=== PATIENT | female | born 1950 | race Caucasian/White ===

== ENCOUNTER 2020-03-23 10:14 | Inpatient (IN) | payer MEDICARE, BC ==
--- NOTE | 2020-03-23 10:31 | ED ---
SOB HPI - General Source: patient Mode of arrival: wheelchair Limitations: no limitations <Angela Hay - Last Filed: 03/23/20 13:20> <Xenia Adam - Last Filed: 03/25/20 02:14> - General Chief Complaint: Shortness of Breath Stated Complaint: weakness/SOB Time Seen by Provider: 03/23/20 10:20 - History of Present Illness Initial Comments: 69-year-old female presenting today for chief complaint of generalized weakness, SOB. She states for the past 2 days she has felt increasingly weak and short of breath she states at times like her heart is racing. Patient states that her tooth has been bleeding on and off where she had a recent dental procedure. Pt denies cough, fevers, diarrhea, vomiting. Patient has noted dark stools. Denies vomiting blood or vomiting. Denies nausea, chest pain. Patient denies pain with deep inspiration. Patient admits to alcohol use. patient denies known history of liver disease or cirrhosis. Denies abdominal pain, or fernando red rectal bleeding. Upon arrival patient smell of alcohol. VS within acceptable limits. Pt does not appear in respiratory distress/toxic. Pt is odd -does not appears altered, but overall poor historian of PMH and describing symptoms (very vague). Last drink yesterday afternoon. (Angela Hay) - Related Data Home Medications Medication Instructions Recorded Confirmed Cholecalciferol [Vitamin D3 (25 1,000 unit PO DAILY 03/23/20 03/23/20 Mcg = 1000 Iu)] Vitamin C(Unknown Dose) 1 tab PO DAILY 03/23/20 03/23/20 Allergies Allergy/AdvReac Type Severity Reaction Status Date / Time No Known Allergies Allergy Verified 03/23/20 13:14 Review of Systems ROS Other: All systems not noted in ROS Statement are negative. <Angela Hay - Last Filed: 03/23/20 13:20> ROS Other: All systems not noted in ROS Statement are negative. <Xenia Adam - Last Filed: 03/25/20 02:14> ROS Statement: Those systems with pertinent positive or pertinent negative responses have been documented in the HPI. Past Medical History Past Medical History: No Reported History History of Any Multi-Drug Resistant Organisms: None Reported Additional Past Surgical History / Comment(s): eye surgery Past Psychological History: No Psychological Hx Reported Smoking Status: Current every day smoker Past Alcohol Use History: Occasional Past Drug Use History: None Reported <Angela Hay - Last Filed: 03/23/20 13:20> General Exam Limitations: no limitations <Angela Hay - Last Filed: 03/23/20 13:20> - General Exam Comments Initial Comments: General: The patient is awake and alert, in no distress Eye: +3 mm pupils are equal, round and reactive to light, extra-ocular movements are intact. No nystagmus. There is normal conjunctiva bilaterally. No signs of icterus. Ears, nose, mouth and throat: There are moist mucous membranes and no oral lesions. Dried blood on lips, near implant no active bleeding. Neck: The neck is supple, there is no tenderness or JVD. Cardiovascular: There is a regular rate and rhythm. No murmur, rub or gallop is appreciated. Respiratory: Lungs are clear to auscultation, respirations are non-labored, breath sounds are equal. No wheezes, stridor, rales, or rhonchi. Gastrointestinal: Soft, non-distended, non-tender abdomen without masses or organomegaly noted. There is no rebound or guarding present. Dark stool on ADONIS. Musculoskeletal: Normal ROM, no tenderness. Strength 5/5. Sensation intact. Radial pulses equal bilaterally 2+. Neurological: A&O x 3. CN II-XII intact grossly, There are no obvious motor or sensory deficits. Coordination appears grossly intact. Speech is normal. Skin: Skin is warm and dry and no rashes or lesions are noted. Psychiatric: Cooperative, appropriate mood & affect, normal judgment. (Angela Hay) Course Vital Signs 03/23/20 03/23/20 10:16 13:11 Temperature 97.8 F Pulse Rate 98 96 Respiratory 18 18 Rate Blood Pressure 157/75 129/68 O2 Sat by Pulse 99 98 Oximetry Medical Decision Making - Lab Data Result diagrams: 03/23/20 10:34 03/23/20 10:34 <Angela Hay - Last Filed: 03/23/20 13:20> - Lab Data Result diagrams: 03/23/20 18:00 03/23/20 10:34 <Xenia Adam - Last Filed: 03/25/20 02:14> - Medical Decision Making 69-year-old feel presents for weakness. Occult positive patient states she has noticed some darker stools. On CT there is evidence of esophageal varices. Patient denies any spitting or vomiting up blood. Patient has elevated INR most likely secondary to chronic liver disease and cirrhosis. She smells of alcohol. Patient is placed on CIWA withdrawal protocols. HgB and blood pressures stable, no bright red blood per rectum. Patient case discussed wtih Dr. Adam who is agreeable to admission for GI bleed, SOB. Dr. Lopez accepted admission. GI on consult. Protonix and loading bolus of octreotride given. Repeat CBC ordered. (Angela Hay) I was available for consultation in the emergency department. The history and physical exam were done by the midlevel provider. I was consulted for this patients care. I reviewed the case with the midlevel provider and based on their presentation of the patient, I agree with the assessment, medical decision making and plan of care as documented. Chart was dictated using [employer] dictation software. Attempts were made to correct any dictation errors however some typographical errors may persist. Patient was seen during a national state of emergency due to the Covid-19 pandemic. (Xenia Adam) - Lab Data Lab Results 03/23/20 03/23/20 03/23/20 Range/Units 10:34 10:34 10:34 WBC 5.7 (3.8-10.6) k/uL RBC 3.63 L (3.80-5.40) m/uL Hgb 13.4 (11.4-16.0) gm/dL Hct 40.7 (34.0-46.0) % MCV 112.1 H (80.0-100.0) fL MCH 37.0 H (25.0-35.0) pg MCHC 33.0 (31.0-37.0) g/dL RDW 16.9 H (11.5-15.5) % Plt Count 49 L (150-450) k/uL Neutrophils % 39 % Lymphocytes % 50 % Monocytes % 4 % Eosinophils % 3 % Basophils % 1 % Neutrophils # 2.2 (1.3-7.7) k/uL Lymphocytes # 2.8 (1.0-4.8) k/uL Monocytes # 0.2 (0-1.0) k/uL Eosinophils # 0.2 (0-0.7) k/uL Basophils # 0.1 (0-0.2) k/uL Manual Slide Review Performed Anisocytosis Slight Macrocytosis Marked A Target Cells Present PT 16.6 H (9.0-12.0) sec INR 1.7 H (<1.2) APTT 30.6 H (22.0-30.0) sec D-Dimer 1.23 H (<0.60) mg/L FEU Sodium 141 (137-145) mmol/L Potassium 3.7 (3.5-5.1) mmol/L Chloride 111 H (98-107) mmol/L Carbon Dioxide 22 (22-30) mmol/L Anion Gap 8 mmol/L BUN 5 L (7-17) mg/dL Creatinine 0.42 L (0.52-1.04) mg/dL Est GFR (CKD-EPI)AfAm >90 (>60 ml/min/1.73 sqM) Est GFR (CKD-EPI)NonAf >90 (>60 ml/min/1.73 sqM) Glucose 117 H (74-99) mg/dL Plasma Lactic Acid Maximilian (0.7-2.0) mmol/L Calcium 8.0 L (8.4-10.2) mg/dL Total Bilirubin 2.4 H (0.2-1.3) mg/dL AST 94 H (14-36) U/L ALT 36 H (4-34) U/L Alkaline Phosphatase 203 H (38-126) U/L Ammonia (<30) umol/L Troponin I (0.000-0.034) ng/mL NT-Pro-B Natriuret Pep pg/mL Total Protein 7.4 (6.3-8.2) g/dL Albumin 3.1 L (3.5-5.0) g/dL Stool Occult Blood (Negative) Hepatitis A IgM Ab 03/23/20 03/23/20 03/23/20 Range/Units 10:34 10:34 10:34 WBC (3.8-10.6) k/uL RBC (3.80-5.40) m/uL Hgb (11.4-16.0) gm/dL Hct (34.0-46.0) % MCV (80.0-100.0) fL MCH (25.0-35.0) pg MCHC (31.0-37.0) g/dL RDW (11.5-15.5) % Plt Count (150-450) k/uL Neutrophils % % Lymphocytes % % Monocytes % % Eosinophils % % Basophils % % Neutrophils # (1.3-7.7) k/uL Lymphocytes # (1.0-4.8) k/uL Monocytes # (0-1.0) k/uL Eosinophils # (0-0.7) k/uL Basophils # (0-0.2) k/uL Manual Slide Review Anisocytosis Macrocytosis Target Cells PT (9.0-12.0) sec INR (<1.2) APTT (22.0-30.0) sec D-Dimer (<0.60) mg/L FEU Sodium (137-145) mmol/L Potassium (3.5-5.1) mmol/L Chloride (98-107) mmol/L Carbon Dioxide (22-30) mmol/L Anion Gap mmol/L BUN (7-17) mg/dL Creatinine (0.52-1.04) mg/dL Est GFR (CKD-EPI)AfAm (>60 ml/min/1.73 sqM) Est GFR (CKD-EPI)NonAf (>60 ml/min/1.73 sqM) Glucose (74-99) mg/dL Plasma Lactic Acid Maximilian 1.8 (0.7-2.0) mmol/L Calcium (8.4-10.2) mg/dL Total Bilirubin (0.2-1.3) mg/dL AST (14-36) U/L ALT (4-34) U/L Alkaline Phosphatase (38-126) U/L Ammonia (<30) umol/L Troponin I <0.012 (0.000-0.034) ng/mL NT-Pro-B Natriuret Pep 163 pg/mL Total Protein (6.3-8.2) g/dL Albumin (3.5-5.0) g/dL Stool Occult Blood (Negative) Hepatitis A IgM Ab 03/23/20 03/23/20 03/23/20 Range/Units 12:30 12:30 12:36 WBC (3.8-10.6) k/uL RBC (3.80-5.40) m/uL Hgb (11.4-16.0) gm/dL Hct (34.0-46.0) % MCV (80.0-100.0) fL MCH (25.0-35.0) pg MCHC (31.0-37.0) g/dL RDW (11.5-15.5) % Plt Count (150-450) k/uL Neutrophils % % Lymphocytes % % Monocytes % % Eosinophils % % Basophils % % Neutrophils # (1.3-7.7) k/uL Lymphocytes # (1.0-4.8) k/uL Monocytes # (0-1.0) k/uL Eosinophils # (0-0.7) k/uL Basophils # (0-0.2) k/uL Manual Slide Review Anisocytosis Macrocytosis Target Cells PT (9.0-12.0) sec INR (<1.2) APTT (22.0-30.0) sec D-Dimer (<0.60) mg/L FEU Sodium (137-145) mmol/L Potassium (3.5-5.1) mmol/L Chloride (98-107) mmol/L Carbon Dioxide (22-30) mmol/L Anion Gap mmol/L BUN (7-17) mg/dL Creatinine (0.52-1.04) mg/dL Est GFR (CKD-EPI)AfAm (>60 ml/min/1.73 sqM) Est GFR (CKD-EPI)NonAf (>60 ml/min/1.73 sqM) Glucose (74-99) mg/dL Plasma Lactic Acid Maximilian (0.7-2.0) mmol/L Calcium (8.4-10.2) mg/dL Total Bilirubin (0.2-1.3) mg/dL AST (14-36) U/L ALT (4-34) U/L Alkaline Phosphatase (38-126) U/L Ammonia 19 (<30) umol/L Troponin I (0.000-0.034) ng/mL NT-Pro-B Natriuret Pep pg/mL Total Protein (6.3-8.2) g/dL Albumin (3.5-5.0) g/dL Stool Occult Blood Positive H (Negative) Hepatitis A IgM Ab NEGATIVE Disposition Is patient prescribed a controlled substance at d/c from ED?: No Time of Disposition: 12:58 Decision to Admit Reason: Admit from EC Decision Date: 03/23/20 Decision Time: 12:58 <Angela Hay - Last Filed: 03/23/20 13:20> <Xenia Adam - Last Filed: 03/25/20 02:14> Clinical Impression: Dyspnea, Weakness, GI bleed, Alcohol abuse, Cirrhosis, Varices, esophageal, Pulmonary congestion, Ascites, Elevated INR Disposition: ADMITTED IP TO THIS HOSP Condition: Stable
[2020-03-23 10:58] LABS: ALT 36 U/L (4-34); AST 94 U/L (14-36); African American GFR (CKD) >90 (>60 ml/min/1.73 sqM); Albumin 3.1 g/dL (3.5-5.0); Alkaline Phosphatase 203 U/L (38-126); Anion Gap 8 mmol/L; Blood Urea Nitrogen 5 mg/dL (7-17); Carbon Dioxide 22 mmol/L (22-30); Chloride 111 mmol/L (98-107); Glucose 117 mg/dL (74-99); Non-African American GFR(CKD) >90 (>60 ml/min/1.73 sqM); Potassium 3.7 mmol/L (3.5-5.1); Sodium 141 mmol/L (137-145); Total Bilirubin 2.4 mg/dL (0.2-1.3); Total Protein 7.4 g/dL (6.3-8.2)
[2020-03-23 11:01] LABS: INR 1.7 (<1.2); Partial Thromboplastin Time 30.6 sec (22.0-30.0); Prothrombin Time 16.6 sec (9.0-12.0)
[2020-03-23 11:05] LABS: D-Dimer 1.23 mg/L FEU (<0.60)
[2020-03-23 11:07] LABS: Anisocytosis Slight; Basophils # (A) 0.1 k/uL (0-0.2); Basophils % (A) 1 %; Eosinophils # (A) 0.2 k/uL (0-0.7); Eosinophils % (A) 3 %; HCT 40.7 % (34.0-46.0); HGB 13.4 gm/dL (11.4-16.0); Lymphocytes # (A) 2.8 k/uL (1.0-4.8); Lymphocytes % (A) 50 %; MCV 112.1 fL (80.0-100.0); Macrocytosis Marked; Mean Platelet Volume 9.8; Monocytes # (A) 0.2 k/uL (0-1.0); Monocytes % (A) 4 %; Neutrophils # (A) 2.2 k/uL (1.3-7.7); Neutrophils % (A) 39 %; RBC 3.63 m/uL (3.80-5.40); RDW 16.9 % (11.5-15.5); WBC 5.7 k/uL (3.8-10.6)
--- NOTE | 2020-03-23 11:08 | XR ---
EXAMINATION TYPE: XR chest 2V DATE OF EXAM: 03/23/2020 COMPARISON: NONE HISTORY: Dyspnea TECHNIQUE: Frontal and lateral views of the chest are obtained. FINDINGS: There is no focal air space opacity, pleural effusion, or pneumothorax seen. Minimal pulm onary vascular congestion. The cardiac silhouette size is within normal limits upper limits normal si ze. The osseous structures are intact. Mild multilevel degenerative change of the spine. IMPRESSION: Minimal pulmonary vascular congestion and upper limits of normal size cardiomediastinal silhouette. Correlate for congestive heart failure.
[2020-03-23 11:22] LABS: Platelet Count 49 k/uL (150-450); Target Cells Present
--- NOTE | 2020-03-23 12:09 | CT ---
EXAMINATION TYPE: CT chest angio for PE DATE OF EXAM: 03/23/2020 COMPARISON: NONE HISTORY: SOB, dizziness, elevated d-dimer CT DLP: 413.3 mGycm. Automated Exposure Control for Dose Reduction was Utilized. CONTRAST: CTA scan of the thorax is performed with IV Contrast, patient injected with 100 mL of Isovue 370, pul monary embolism protocol. MIP Images are created on CT scanner and reviewed. FINDINGS: Patient motion artifact and suboptimal bolus timing limits evaluation. LUNGS: Respiratory motion and patient motion limit evaluation of the lungs. There are scattered areas of subsegmental atelectasis. Slight interstitial prominence favoring a mild degree of fluid overload . Limited evaluation for pulmonary nodule. There is no pleural effusion or pneumothorax seen. The tracheobronchial tree is patent. MEDIASTINUM: There is suboptimal enhancement of the pulmonary artery and its branches with equivalent amount of contrast in the aorta and main pulmonary artery. No central pulmonary embolus seen. There are no greater than 1 cm hilar or mediastinal lymph nodes. Heart is upper limits of normal size witho ut pericardial effusion. Moderate coronary artery calcification seen, particularly within the left an terior descending coronary artery. OTHER: Lipomatous lesion of the right lateral chest wall. This measures 3.4 cm. There is an abnormal lobulated contour the liver with mild perihepatic ascites. Hypoattenuation of the hepatic parenchyma in hepatocellular disease limit evaluation for hepatic masses. The spleen is enlarged measuring 15.4 cm in longitudinal dimension. There is mesenteric congestion, particularly centrally in combination w ith the small amount of perihepatic ascites. There is enlargement of the main portal vein representin g portal venous hypertension sequela. Cholelithiasis is seen. Few varices are noted in the gastric he patic ligament region and around the spleen. Varices are also seen surrounding the distal esophagus. There is slight thickening of the bilateral adrenal glands suggesting adrenal gland hyperplasia. Mild multilevel degenerative change of the spine. IMPRESSION: 1. Suboptimal exam given bolus timing and patient motion. No central pulmonary embolus. 2. Cirrhotic morphology of the liver with sequela portal venous hypertension, trace abdominal ascites , mesenteric edema, esophageal varices, and varices within both the upper central abdomen and splenic region. 3. Moderate coronary calcifications, marker of coronary artery disease. 4. Cholelithiasis. 5. Mild interstitial prominence suggesting a mild degree of pulmonary fluid overload.
[2020-03-23] MEDS ORDERED: THIAMINE 100 MG/ML 2 ML VIAL IM STA (12:24)
[2020-03-23] MEDS ORDERED: LORazepam 2 MG/ML INJ IV PRN ×3 (12:24)
[2020-03-23] MEDS ORDERED: NALOXONE 0.4 MG/ML 1 ML VIAL IV PRN (12:59)
[2020-03-23] MEDS ORDERED: PANTOPRAZOLE 40 MG/10 ML VIAL IVP STA (13:07)
[2020-03-23 13:21] LABS: Hepatitis A Antibody IgM NEGATIVE
[2020-03-23] MEDS: THIAMINE 100 MG TAB PO SCH (17:14)
--- NOTE | 2020-03-23 17:14 | HP ---
HISTORY AND PHYSICAL CHIEF COMPLAINT: Weakness and blood in the stool. HISTORY OF PRESENT ILLNESS: This the first known admission for this 69-year-old white female. She came to the emergency room with a complaint of weakness and shortness of breath. This has been going on for the last several days. She also noticed tachycardia. She had some melanotic stool as well. It was very clear that she is an alcoholic. In the emergency room her vital signs were unremarkable. CBC was normal except platelets were low at 49,000. Electrolytes were unremarkable. Ammonia was 19. Bilirubin was 2.4. AST was 94 with ALT of 36. Alkaline phosphatase was 203. REVIEW OF SYSTEMS: She denies any headaches, seizures, blackouts, difficulty with vision or hearing, chest pain, cough, hemoptysis, shortness of breath, palpitations, heart disease, murmurs, rheumatic fever, hypertension, orthopnea, PND, abdominal pain, jaundice, acholic stools, dark urine, renal failure, frequency, urgency, dysuria, incontinence, etc. Past medical history, family history and personal and social histories reveal that she is not allergic to any medications. She does not take any medications at home. She states she still smokes about half pack of cigarettes a day and drinks fairly heavily every day with her . PHYSICAL EXAMINATION: Blood pressure is 157/75 with a pulse of 98, respirations 18 and she is afebrile. In general she appeared well developed, well nourished, no acute distress. Skin was slightly bronzed. Head, ears, eyes, nose, mouth and throat demonstrated icterus. Pupils were equal, round. Ears are clear. Nose mouth and throat were normal and she did have fetor hepaticus. Neck is supple. Neck veins not distended. Chest is clear to auscultation. Cardiac exam demonstrated normal sinus rhythm with a grade 1/6 systolic murmur heard at the base. The abdomen was protuberant and there was evidence of significant ascites. There are no masses or visceromegaly. Extremities are normal. Neurologically she is intact. She was admitted to the hospital diagnoses: 1. Gastrointestinal bleed. 2. Chronic alcoholism. 3. Alcoholic hepatitis. 4. Cirrhosis. 5. Probable portal hypertension. 6. Thrombocytopenia. 7. Cardiac murmur. PLAN: 1. Bed rest. 2. IV fluids. 3. N.p.o. 4. Follow laboratory studies closely. 5. GI consult. MMODL / IJN: [id number] /
[2020-03-23] MEDS: SODIUM CHLORIDE 0.9% 1,000 ML IV SCH (17:15)
[2020-03-23 18:21] LABS: Anisocytosis Slight; Basophils % (A) 1 %; Eosinophils % (A) 1 %; HCT 39.4 % (34.0-46.0); HGB 12.3 gm/dL (11.4-16.0); Lymphocytes # (A) 1.4 k/uL (1.0-4.8); Lymphocytes % (A) 31 %; MCH 35.5 pg (25.0-35.0); MCHC 31.2 g/dL (31.0-37.0); MCV 114.1 fL (80.0-100.0); Macrocytosis Marked; Monocytes # (A) 0.2 k/uL (0-1.0); Monocytes % (A) 4 %; Neutrophils # (A) 2.8 k/uL (1.3-7.7); Neutrophils % (A) 62 %; RBC 3.45 m/uL (3.80-5.40); RDW 16.3 % (11.5-15.5); WBC 4.6 k/uL (3.8-10.6)
[2020-03-23 18:51] LABS: Platelet Count 46 k/uL (150-450)
[2020-03-24] MEDS: SODIUM CHLORIDE 0.9% 1,000 ML IV SCH ×3 (02:29→20:38)
[2020-03-24] MEDS: THIAMINE 100 MG TAB PO SCH ×2 (08:02→18:02)
--- NOTE | 2020-03-24 11:24 | CONS ---
CONSULTATION DATE OF CONSULTATION: March 24, 2020. REQUESTING PHYSICIAN: Dr. Lopez. REASON FOR CONSULTATION: Melena and GI bleed. HISTORY OF PRESENT ILLNESS: The patient is a 69-year-old pleasant white female with history of heavy alcohol moderate alcohol use for the last 20 years duration, came to the emergency room complaining of some shortness of breath, weakness, fatigue, somewhat dizzy and black tarry stools for the last 3 days duration. She drinks 3-4 glasses of wine every day for the last 20 years. She became concerned because of her shortness of breath and became extremely dizzy yesterday afternoon and hence came in the emergency room and subsequently admitted to the hospital for further evaluation. She was noted to have a hemoglobin of 12.3 and platelets of 49,000. Also noted to have elevated serum transaminases with a bilirubin of 2.4, AST was 64, ALT was 36, and alkaline phosphatase was 203. The patient denies any history of chronic liver disease. No history of jaundice or hepatitis in the past. She denies any intravenous drug use. She denies any recent NSAID use. No prior history of peptic ulcer disease. PAST MEDICAL HISTORY: Significant for alcohol use. PAST SURGICAL HISTORY: Some eye surgery. MEDICATIONS: At home, vitamin D3, and vitamin C. ALLERGIES: None. SOCIAL HISTORY: Chronic smoker. Alcohol use as mentioned above. FAMILY HISTORY: Unremarkable. REVIEW OF SYMPTOMS: Cardiopulmonary: No chest pain, shortness of breath. no dysuria or hematuria. MUSCULOSKELETAL unremarkable. SKIN unremarkable. ENDOCRINE unremarkable. PSYCHIATRIC unremarkable. NEUROLOGY unremarkable. ENT/vision unremarkable. CONSTITUTIONAL: No recent weight loss. No fever, chills, night sweats. PHYSICAL EXAMINATION: Blood pressure 129/61, pulse rate 73, temperature 98.4. HEENT examination unremarkable. Conjunctivae pink. Sclerae anicteric. Oral cavity no lesions. NECK: No JVD or lymph node enlargement. CHEST: Clear to auscultation. HEART: Regular rate and rhythm. ABDOMEN: Soft, it was nontender, nondistended. Bowel sounds are positive. No organomegaly. EXTREMITIES: No pedal edema. SKIN no rashes. NEURO: She is alert and oriented x3. No focal deficits. LABS: From yesterday WBC 5.7, hemoglobin 13.4, platelets 49,000. Today hemoglobin 12.3, and platelets are 46,000. INR is 1.7, T-bilirubin 2.4, AST 94, ALT 36, alkaline phosphatase 203. Stool occult blood was positive. IMPRESSION: 1. This is a patient who was admitted to hospital with black tarry stools for the last 3 days duration associated with dizziness and fatigue for the last 3 days. Hemoglobin dropped from 13-12.5 g/dL. Clinically, she is hemodynamically stable. Most likely dealing with an upper gastrointestinal source of bleeding. 2. Thrombocytopenia secondary to underlying chronic liver disease. 3. Elevated LFTs and jaundice with AST more than ALT, all consistent with chronic alcoholic liver disease with possible underlying liver cirrhosis. RECOMMENDATIONS: 1. Continue with Protonix 40 mg daily. 2. We will proceed with an upper endoscopy tomorrow. 3. Clear liquid diet. 4. Monitor CBC on a daily basis. 5. Abstinence from alcohol. 6. Await serologies for hepatitis B and C and we will follow with you closely. Thank you for this consultation. SUSI / ASUNCIONN: [id number] /
[2020-03-24] MEDS ORDERED: PHYTONADIONE ORAL 5 MG/5 ML ORAL.SYRG PO STA (13:03)
--- NOTE | 2020-03-24 14:09 | PN ---
PROGRESS NOTE CHIEF COMPLAINT: GI bleed, weakness, cirrhosis, and alcoholism. HISTORY OF PRESENT ILLNESS: This lady is fairly stable and she has had no further significant bleeding. She is going for endoscopy tomorrow. PHYSICAL EXAMINATION: She still is slightly jaundiced. Chest is clear. Cardiac exam is normal and the abdomen is slightly distended. IMPRESSION: 1. Gastrointestinal bleed. 2. Possible portal hypertension. 3. Probable cirrhosis. 4. Alcoholic hepatitis. PLAN: Endoscopies tomorrow. MMODL / IJN: [id number] /
[2020-03-25] MEDS: SODIUM CHLORIDE 0.9% 1,000 ML IV SCH ×2 (05:23→20:55)
[2020-03-25] MEDS ORDERED: MIDAZOLAM 2 MG/2 ML VIAL ONE (10:06)
[2020-03-25] MEDS ORDERED: PROPOFOL 10 MG/ML 20 ML VIAL IV ONE (10:06)
[2020-03-25] MEDS ORDERED: LIDOCAINE 1% INJ 10MG/ML (20 ML MDV) ONE (10:06)
[2020-03-25] MEDS: THIAMINE 100 MG TAB PO SCH ×2 (10:09→17:31)
[2020-03-25] MEDS ORDERED: IV FLUID CONTINUATION 1,000 ML IV ONE ×2 (10:11)
[2020-03-25] MEDS ORDERED: SODIUM CHLORIDE 0.9% 500 ML 500 ML IV ONE (10:18)
--- NOTE | 2020-03-25 10:19 | P.PCN ---
Date of Procedure: 03/25/20 Procedure(s) Performed: BRIEF HISTORY: Patient is a 69-year-old, pleasant, female, admitted hospital with shortness of breath and black tarry stools. She has history of moderate alcohol use and was noted to have elevated LFTs at the time of admission to hospital. She is scheduled for an upper endoscopy to evaluate for upper GI source of bleeding. PROCEDURE PERFORMED: Esophagogastroduodenoscopy with biopsy. PREOPERATIVE DIAGNOSIS: Black tarry stools of 3 days' duration. IV sedation per anesthesia. PROCEDURE: After informed consent was obtained, the patient was brought into the endoscopy unit. IV sedation was administered by Anesthesia under continuous monitoring. Initially the Olympus GIF-140 video endoscope was inserted into the mouth. Esophagus intubated without any difficulty. It was gradually advanced into the stomach and duodenum and carefully examined. The bulb and the second part of the duodenum appeared normal. The scope at this time was withdrawn to the stomach, adequately insufflated with air, and upon careful examination, mucosa of the antrum had mild gastritis and biopsies were done from this area. Mucosa of the, body, cardia and the fundus and changes consistent with mild to moderate portal hypertensive gastropathy. No gastric varices seen. The scope was then withdrawn into the esophagus. The GE junction was located at 39 cm from the incisors. The esophagus appeared normal. There was a small hiatal hernia noted. There was small distal esophageal varices identified with no active bleeding. There were no erosions or ulcerations seen and the patient tolerated the procedure well. IMPRESSION: 1. Small esophageal varices with no active bleeding. 2. Moderate portal hypertensive gastropathy involving the body and fundus of the stomach. 3. Small hiatal hernia and mild antral gastritis RECOMMENDATIONS: The findings of this examination were discussed with the patient as well as a family. She was advised to follow with the biopsy results. Diet can be advanced as tolerated. Abstinence from alcohol.
[2020-03-25 15:05] LABS: Hepatitis B Core IgM Non-Reactive (Non-Reactive); Hepatitis B Surface Antigen Non-Reactive (Non-Reactive); Hepatitis C IgG Antibody Non-Reactive (Non-Reactive)
--- NOTE | 2020-03-25 22:02 | PN ---
PROGRESS NOTE DATE OF SERVICE: 03/25/2020 CHIEF COMPLAINT: Weakness and GI blood loss. HISTORY OF PRESENT ILLNESS: This lady is going today for endoscopies. She is doing fairly well otherwise. She has noticed that she has "dark urine." This is all related to her hepatic disease. PHYSICAL EXAMINATION: She still has ascites. The chest is clear. Cardiac exam is normal. IMPRESSION: 1. Gastrointestinal blood loss. 2. Cirrhosis with ascites. 3. Alcoholism. PLAN: Endoscopies today. MMODL / IJN: [id number] /
[2020-03-26] MEDS: SODIUM CHLORIDE 0.9% 1,000 ML IV SCH ×2 (01:23→11:22)
[2020-03-26] MEDS: THIAMINE 100 MG TAB PO SCH (09:51)
[2020-03-26 14:21] VITALS: BP 148/68; PULSE 76; RESP 16; TEMP 98.3
[2020-03-26 14:48] LABS: Anisocytosis Slight; Basophils % (A) 1 %; Eosinophils # (A) 0.1 k/uL (0-0.7); Eosinophils % (A) 3 %; HCT 37.2 % (34.0-46.0); HGB 11.8 gm/dL (11.4-16.0); Hypochromasia Slight; Lymphocytes # (A) 1.4 k/uL (1.0-4.8); Lymphocytes % (A) 36 %; MCH 37.3 pg (25.0-35.0); MCHC 31.8 g/dL (31.0-37.0); MCV 117.3 fL (80.0-100.0); Macrocytosis Marked; Monocytes # (A) 0.3 k/uL (0-1.0); Monocytes % (A) 7 %; Neutrophils % (A) 52 %; RBC 3.17 m/uL (3.80-5.40); RDW 16.7 % (11.5-15.5); WBC 3.8 k/uL (3.8-10.6)
[2020-03-26 14:56] LABS: Mean Platelet Volume 9.6
[2020-03-26 15:06] LABS: ALT 29 U/L (4-34); AST 68 U/L (14-36); African American GFR (CKD) >90 (>60 ml/min/1.73 sqM); Albumin 2.6 g/dL (3.5-5.0); Alkaline Phosphatase 153 U/L (38-126); Anion Gap 5 mmol/L; Blood Urea Nitrogen 6 mg/dL (7-17); Calcium 7.9 mg/dL (8.4-10.2); Carbon Dioxide 22 mmol/L (22-30); Chloride 112 mmol/L (98-107); Glucose 121 mg/dL (74-99); Non-African American GFR(CKD) >90 (>60 ml/min/1.73 sqM); Potassium 3.5 mmol/L (3.5-5.1); Sodium 139 mmol/L (137-145); Total Protein 6.5 g/dL (6.3-8.2)
[2020-03-26 16:26] LABS: Platelet Count 44 k/uL (150-450)
--- NOTE | 2020-03-26 20:11 | PN ---
PROGRESS NOTE DATE OF SERVICE: 03/26/2020 CHIEF COMPLAINT: Weakness and GI blood loss. HISTORY OF PRESENT ILLNESS: This lady is doing fairly well. Studies yesterday suggested small esophageal varices without evidence of bleeding. She is not having any problems today and her hemoglobin has been stable. PHYSICAL EXAMINATION: She remains slightly jaundiced. Chest is clear. Cardiac exam is normal. The abdomen is slightly distended. Bowel sounds are present. Extremities are normal. IMPRESSION: 1. Gastrointestinal blood loss. 2. Esophageal varices. 3. Cirrhosis. 4. Portal hypertension. 5. Ascites. 6. Alcoholism. 7. Thrombocytopenia. PLAN: Progress activity and diet and probably home tomorrow. MMODL / IJN: [id number] /
--- NOTE | 2020-03-27 02:57 | PN ---
PROGRESS NOTE DATE OF DICTATION: 03/26/2020 Patient is a 69-year-old pleasant white female with history of moderate alcohol use, admitted to the hospital with black tarry stools. She underwent an upper endoscopy yesterday that showed evidence of portal hypertensive gastropathy and small esophageal varices. She was also noted to have mild elevation of serum transaminases and bilirubin up to 2.1. She is doing better. She denies any symptoms today. She wants to go home. PHYSICAL EXAMINATION: On physical examination, appears comfortable, in no apparent distress. Vital signs are stable. Blood pressure 148/68, pulse is 76, temperature is 98.3. HEENT EXAMINATION: Unremarkable. Conjunctivae pink. Sclerae anicteric. Oral cavity, no lesions. NECK: No JVD or lymph node enlargement. CHEST: Clear to auscultation. HEART: Regular rate and rhythm. ABDOMEN: Soft, it was nontender, nondistended. Bowel sounds are positive. No organomegaly. EXTREMITIES: No pedal edema. SKIN: No rashes. NEURO: She is alert and oriented x3. No focal deficits. LABS: WBC 3.8, hemoglobin 11.8, platelets 44. Basic metabolic panel is normal. Total bilirubin 3, AST 68, ALT 29, alkaline phosphatase 153. Hepatitis serologies for B and C negative. IMPRESSION: 1. Alcoholic liver disease with alcoholic cirrhosis of the liver. 2. Melena of 2 days duration. Upper endoscopy revealed portal hypertensive gastropathy and small esophageal varices secondary to underlying chronic liver disease. 3. Thrombocytopenia secondary to portal hypertension from chronic liver disease. RECOMMENDATIONS: Advised to remain abstinent from alcohol. Continue with Protonix 40 mg daily. Follow up in the office in 2 to 3 weeks. Thank you for this consultation. MMODL / IJN: [id number] /
--- NOTE | 2020-03-27 05:39 | DS ---
DISCHARGE SUMMARY CHIEF COMPLAINT: Weakness, shortness of breath and GI bleed. HISTORY OF PRESENT ILLNESS AND PHYSICAL EXAM: Details of this lady's history and physical can be found in the initial workup. LABORATORY STUDIES: While she was in the hospital she had laboratory studies, details of which can be found in the laboratory section of her chart. COURSE IN HOSPITAL: After she was admitted, she was placed on bedrest, started on intravenous fluids and it was felt that she had portal hypertension and likely an upper GI bleed. She had obvious ascites and jaundice. She eventually was taken for an endoscopy and was found to have esophageal varices that were not bleeding. She was stable and it was felt that she could be discharged home and she will go home on Aldactazide 25/25 once a day and thiamine 100 mg b.i.d. She will follow up with Gastroenterology and either her own physician or us in the next week or so. FINAL DIAGNOSES: 1. Upper gastrointestinal bleed. 2. Blood loss anemia. 3. Thrombocytopenia. 4. Esophageal varices. 5. Cirrhosis. 6. Portal hypertension. 7. Ascites. OPERATIONS: Endoscopy. CONSULTATIONS: Gastroenterology. She is improved. MMODL / IJN: [id number] /
[2020-03-27] MEDS ORDERED: SPIRONOLACTONE-HCTZ 25-25MG 1 EACH TAB PO SCH (09:00)
== END 2020-03-26 18:17 | disposition home or self-care (01) | DRG 432 ==
LOC: EC 10:14 → 4SSUR 12:56
PROVIDERS: ADMIT Family Medicine; ATTEND Family Medicine
PROC: 0DB78ZX Excision of Stomach, Pylorus, Via Natural or Artificial Opening Endoscopic, Diagnostic (ICD-10-PCS; principal; 2020-03-25 07:30)
DX: K70.31 Alcoholic cirrhosis of liver with ascites (principal); I85.11 Secondary esophageal varices with bleeding; K76.6 Portal hypertension; D50.0 Iron deficiency anemia secondary to blood loss (chronic); F10.20 Alcohol dependence, uncomplicated; D69.59 Other secondary thrombocytopenia; F17.210 Nicotine dependence, cigarettes, uncomplicated; K29.70 Gastritis, unspecified, without bleeding; K31.89 Other diseases of stomach and duodenum; K44.9 Diaphragmatic hernia without obstruction or gangrene; K70.11 Alcoholic hepatitis with ascites; R79.1 Abnormal coagulation profile; Z11.59 Encounter for screening for other viral diseases; R01.1 Cardiac murmur, unspecified
CPT/HCPCS: 36415; 43239; 71046; 71275; 80053; 80074; 82140; 82272; 83605; 83880; 84484; 85025; 85379; 85610; 85730; 87635; 88305; 93005; 99285